=== PATIENT | male | born 1975 | race Two or more races ===

== ENCOUNTER 2023-04-23 12:45 | Emergency (ER) | payer OTHER ==
[~2023-04-23] VITALS: Ht 162.6 cm; Wt 85.3 kg
== END 2023-04-23 17:10 | disposition designated cancer center or children's hospital (05) ==
LOC: ER 12:45
DX: S62.511B Displaced fracture of proximal phalanx of right thumb, initial encounter for open fracture (principal); S51.811A Laceration without foreign body of right forearm, initial encounter; W31.2XXA Contact with powered woodworking and forming machines, initial encounter; Y93.89 Activity, other specified; Y92.89 Other specified places as the place of occurrence of the external cause; Y99.8 Other external cause status